=== PATIENT | female | born 1990 | race Caucasian/White ===

== ENCOUNTER 2017-06-04 00:16 | Emergency (ER) | payer OTHER ==
[~2017-06-04] VITALS: Ht 162.5 cm; Wt 72.6 kg
[~2017-06-04 00:16] MED LIST: ALAWAY 10 ML10 ML OU; ANAPROX DS550 MG PO; ATARAX25 MG PO; AUGMENTIN 875 M1 TAB PO; BACTRIM DS 8001 TA1 PO; BENADRYL ALLERG25 M5 PO; BENADRYL25 MG PO; BENTYL10 MG PO; CIPRO500 MG PO; CIPROFLOXACIN500 MG PO; CLARITIN10 MG PO; CLINDAMYCIN HC300 MG PO; CORTISPORIN 1%-10 M1 OT; DARVOCET N 1001 TAB PO; DAYPRO600 M1 PO; DICLOFENAC POTA50 MG PO; DOXYCYCLINE MO100 MG PO; DOXYCYCLINE100 M2 PO; ELMIRON100 MG PO; HYDROCODONE BIT1 T11 PO; KEFLEX500 MG PO; MIRALAX POWDER255 GM PO; MOBIC15 MG PO; MOTRIN800 MG PO; NAPROSYN375 MG PO; NAPROSYN500 MG PO; NEXPLANON68 MG IM; NKHM; PHENERGAN W/DM120 ML PO; PREDNICOT20 MG PO; PREDNISONE10 MG PO; PREDNISONE20 MG PO; PREDNISONE50 MG PO; PYRIDIUM100 MG PO; Peridex 473 ML473 ML PO; ROBAXIN750 MG PO; ROBITUSSIN AC 110 ML PO; TRAMADOL HCL50 MG PO; ULTRAM50 MG PO; URIBEL CAPSULE1 EACH PO; VENTOLIN H0.09 MG/AC INH; VIBRAMYCIN100 MG PO; VICODIN 5/500 505 MG PO; VICODIN 500 MG-1 TAB PO; ZITHROMAX Z PA250 MG PO; ZITHROMAX250 MG PO; ZOFRAN ODT4 MG SL; ZYRTEC10 MG PO
[2017-06-04 01:16] LABS: BILIRUBIN 1+ (NEGATIVE); BLOOD 3+ (NEGATIVE); CLARITY CLOUDY (CLEAR); COLOR YELLOW (YELLOW); GLUCOSE NEGATIVE (NEGATIVE); KETONE TRACE (NEGATIVE); LEUKO ESTERASE 2+ (NEGATIVE); NITRITE NEGATIVE (NEGATIVE); PROTEIN 1+ (NEGATIVE); SPECIFIC GRAVITY >= 1.030 (1.005-1.030)
[2017-06-04 01:21] LABS: RBC TNTC rbc/hpf (0-2)
[2017-06-04 01:22] LABS: BACTERIA 1+; URINE REFLEX COMMENT YES (NO); WBC TNTC wbc/hpf (0-5)
[2017-06-04] MEDS ORDERED: BACTRIM 400-801 EACH PO (01:28)
[2017-06-04] MEDS ORDERED: PYRIDIUM200 M1 PO (01:29)
== END 2017-06-04 01:44 | disposition home or self-care (01) ==
LOC: ED 00:16
PROVIDERS: Emergency Medicine
DX: N39.0 Urinary tract infection, site not specified (principal); R31.9 Hematuria, unspecified; F17.200 Nicotine dependence, unspecified, uncomplicated; Z88.1 Allergy status to other antibiotic agents

== ENCOUNTER 2017-06-09 11:59 | Inpatient (IN) | payer OTHER ==
[~2017-06-09] VITALS: Ht 162.6 cm; Wt 74.4 kg
[~2017-06-09 11:59] MED LIST changes: +BACTRIM 400-801 EACH PO; +PYRIDIUM200 M1 PO
[2017-06-09 12:14] VITALS: BP 117/86
[2017-06-09 12:36] LABS: BILIRUBIN 2+ (NEGATIVE); BLOOD 2+ (NEGATIVE); CLARITY CLOUDY (CLEAR); COLOR YELLOW (YELLOW); GLUCOSE NEGATIVE (NEGATIVE); KETONE 3+ (NEGATIVE); LEUKO ESTERASE 2+ (NEGATIVE); NITRITE NEGATIVE (NEGATIVE); PH 5.5 (5.0-9.0)
[2017-06-09 12:51] LABS: HEMATOCRIT 43.8 % (37.0-47.0); MEAN CELL VOLUME 86.6 fl (81.0-99.0); MEAN CORPUSCULAR HGB 29.6 pg (27.0-31.0); MEAN CORPUSCULAR HGB CONC 34.2 g/dl (33.0-37.0); MEAN PLATELET VOLUME 9.4 fl (9.6-12.3); PLATELET COUNT AUTOMATED 243 10*3/uL (130-400); RED BLOOD COUNT 5.06 10*6/uL (4.10-5.10); RED CELL DISTRI WIDTH 13.5 % (0-14.5); WHITE BLOOD COUNT 24.3 10*3/uL (4.8-10.8)
[2017-06-09 12:53] LABS: WBC 21-30 wbc/hpf (0-5)
[2017-06-09 12:54] LABS: BACTERIA TRACE
[2017-06-09 13:06] LABS: ALBUMIN 3.8 gm/dl (3.1-4.5); ALKALINE PHOSPHATASE 68 U/L (45-117); BUN 8 mg/dl (7-24); CHLORIDE 101 mmol/L (98-107); CREATININE 0.91 mg/dL (0.55-1.02); SGOT/AST 9 IU/L (3-35); SGPT/ALT 13 U/L (12-78); SODIUM 133 mmol/L (136-145); TOTAL PROTEIN 7.5 gm/dL (6.4-8.2)
[2017-06-09 13:08] LABS: PLATELET SUFFICIENCY NORMAL (NORMAL); TOTAL CELLS COUNTED 100 #CELLS
--- NOTE | 2017-06-09 13:35 | NUR ---
PT REMAINS W/O ACUTE DISTRESS NOTED,POSITIONED FOR COMFORT BLANKETS AND PILLOW WERE PREVIOUSLY PROVIDED AND NO COMPLAINTS VOICED @ THIS TIME,SAFETY PRECAUTIONS INTACT AND CALL LIGHT WITHIN REACH.
[2017-06-09 14:47] VITALS: BP 124/74
[2017-06-09 15:30] VITALS: BP 119/61
--- NOTE | 2017-06-09 15:30 | NUR ---
A 26, admitted to , under the services of TIERNEY Contreras DO with a diagnosis of UTI. Chief complaint is PAIN. Patient arrived via stretcher from ER. Monitor applied. Initial assessment completed. Vital signs taken and recorded. TIERNEY CONTRERAS DO notified of admission to the unit. Orders received. See assessment for past medical history, medications and allergies. Patient and/or family oriented to unit. [facility] visitation policy reviewed. Clothing/patient valuable form completed. SAMEREN PAULA
[2017-06-09] MEDS ORDERED: BACTRIM 400-801 EACH PO (15:41)
[2017-06-09] MEDS ORDERED: PYRIDIUM200 M1 PO (15:44)
--- NOTE | 2017-06-09 17:42 | NUR ---
MEDICATED WITH ZOFRAN IV FOR C/O NAUSEA.
--- NOTE | 2017-06-09 18:29 | NUR ---
MEDICATED WITH PAIN PILL FOR PAIN OF 10 OUT OF TEN ON THE PAIN SCALE.
--- NOTE | 2017-06-09 19:36 | NUR ---
PATIENT SITTING UP IN BED C/O N/V. STATES NOT FEELING WELL AT ALL AND THREW UP HER FOOD. ORAL TEMP 99.1. ZOFRAN NOT DUE AT THIS TIME. WILL GIVE TYLENOL PO. BED IN LOWEST POSITION, CALL LIGHT IN REACH
--- NOTE | 2017-06-09 19:49 | NUR ---
MEDICATED WITH PRN TYLENOL FOR TEMP OF 99.1. WILL MONITOR
[2017-06-09 20:00] VITALS: BP 119/61
--- NOTE | 2017-06-09 21:29 | NUR ---
TYLENOL NOT EFFECITVE. ORAL TEMPERATIVE 99.6
--- NOTE | 2017-06-09 21:31 | NUR ---
DR ALARCON AWARE OF PATIENT'S TEMPERATURE. STATES WE WILL WATCH IT FOR NOW AND WE DONT HAVE TO RECHECK IT JUST YET. WILL CONTINUE TO MONITOR
--- NOTE | 2017-06-09 22:39 | NUR ---
PATIENT MEDICATED WITH PRN NORCO FOR C/O RIGHT SIDED PAIN RATED 5/10 ON A 0/10 PAIN SCALE
[2017-06-10] VITALS: BP 117/64
--- NOTE | 2017-06-10 01:00 | NUR ---
PATIENT RESTING IN BED WITH EYES CLOSED. RESPS EASY AND REGULAR. NO S/S OF DISTRESS. BED IN LOWEST POSITOIN, CALL LIGHT IN REACH
--- NOTE | 2017-06-10 01:55 | NUR ---
DR ALARCON AWARE OF TEMPERATURE 101.3. STATES HE WILL BE UP TO SEE THE PATIENT. NO ORDERS AT THIS TIME
--- NOTE | 2017-06-10 02:04 | NUR ---
DR ALARCON AT BEDSIDE
--- NOTE | 2017-06-10 02:39 | NUR ---
PATIENT REQUESTED PRN NORCO FOR PAIN ON THE RIGHT SIDE RATED 3/10 ON A 0/10 PAIN SCALE
--- NOTE | 2017-06-10 03:00 | NUR ---
24 HR chart check completed.
[2017-06-10 04:00] VITALS: BP 101/52
--- NOTE | 2017-06-10 05:56 | NUR ---
MEDICATION EFFECTIVE PER PATIENT
[2017-06-10 06:59] LABS: MEAN CELL VOLUME 89.4 fl (81.0-99.0); MEAN CORPUSCULAR HGB CONC 33.6 g/dl (33.0-37.0); MEAN PLATELET VOLUME 9.9 fl (9.6-12.3); PLATELET COUNT AUTOMATED 197 10*3/uL (130-400); RED BLOOD COUNT 4.06 10*6/uL (4.10-5.10); RED CELL DISTRI WIDTH 13.8 % (0-14.5); WHITE BLOOD COUNT 21.4 10*3/uL (4.8-10.8)
[2017-06-10 07:11] LABS: HEMATOCRIT 36.3 % (37.0-47.0); HEMOGLOBIN 12.2 g/dl (12.0-16.0)
[2017-06-10 07:25] LABS: BUN 5 mg/dl (7-24); CHLORIDE 107 mmol/L (98-107); CHOLESTEROL 108 mg/dL (<200); CREATININE 0.69 mg/dL (0.55-1.02); HDL CHOLESTEROL 34 mg/dl (40-60); LDL CHOLESTEROL 64 mg/dL (9-159); MAGNESIUM 2.3 mg/dL (1.5-2.1); PHOSPHOROUS 2.7 mg/dL (2.5-4.9); SODIUM 141 mmol/L (136-145); TRIGLYCERIDES 49 mg/dl (<150); VLDL CHOLESTEROL 10 mg/dL (6-40)
[2017-06-10 07:26] LABS: PLATELET SUFFICIENCY NORMAL (NORMAL); TOTAL CELLS COUNTED 100 #CELLS
[2017-06-10 07:29] LABS: ACT PARTIAL THROMBO TIME 26.1 SECONDS (20.8-31.5); INTERNATIONAL NORM RATIO 1.2 (2.0-3.5)
--- NOTE | 2017-06-10 07:40 | NUR ---
IV site to left arm is leaking. Site discontinue and dressing applied. IV started right antecubital with #20 angiocath after 1 attempts. The IV site was prepped with Chloraprep. Heparin lock attached. IV solution NS infusing at 100 cc/hr. Sterile dressing applied. Patient tolerated precedure well. Procedure performed according to [facility] policy & procedure. MELVIN SANCHEZ
[2017-06-10 08:00] VITALS: BP 108/45
--- NOTE | 2017-06-10 10:40 | NUR ---
[place] given per prn order for c/o back and abdominal pain and zofran given for nausea.
--- NOTE | 2017-06-10 11:30 | NUR ---
States that medcation given earlier effective.
[2017-06-10 12:00] VITALS: BP 114/60
--- NOTE | 2017-06-10 15:11 | NUR ---
Medicated with norco per prn order for c/o abdominal pain and back pain.
[2017-06-10 16:00] VITALS: BP 112/61
--- NOTE | 2017-06-10 16:38 | NUR ---
Medicated with tylenol per prn order complaints of headache. States she is coughing as well some white to yellow phlegm. Pt lungs are clear. States she is wondering if it is her sinuses. Also requesting nicoderm patch. Spoke with Dr. Obregon at this time regarding pt complaints/request.
--- NOTE | 2017-06-10 16:41 | NUR ---
Medicated with zofran iv per prn order for complaints of nausea.
--- NOTE | 2017-06-10 18:00 | NUR ---
States that medication was effective.
--- NOTE | 2017-06-10 19:39 | NUR ---
PATIENT SITTING IN BED WITH VISITOR AT BEDSIDE. IV INFUSING WITHOUT DIFFICULTY. PATIENT STATES SHE WOULD LIKE ANOTHER MOTRIN BEFORE BED TONIGHT BECAUSE IT WORKED WELL LAST NIGHT. WILL CALL THE DR DRAPERY AND UPHOLSTERY ESTIMATOR. NO OTHER NEEDS MADE AT THIS TIME. BED IN LOWEST POSITION, CALL LIGHT IN REACH
[2017-06-10 20:00] VITALS: BP 114/59
--- NOTE | 2017-06-10 21:19 | NUR ---
MEDICATED WITH PRN NORCO FOR C/O PAIN IN THE RIGHT FLANK RATED 10/10 ON A 0/10 PAIN SCALE. WILL MONITOR.
--- NOTE | 2017-06-10 22:14 | NUR ---
PATIENT CRYING AND SHAKING COMPLAINING OF PAIN IN THE RIGHT FLANK. MEDICATED WITH PRN MORPHINE. PAIN RATED A 10/10 ON A 0/10 PAIN SCALE. WILL MONITOR
--- NOTE | 2017-06-10 22:35 | NUR ---
NORCO NOT EFFECTIVE PER PATIENT
--- NOTE | 2017-06-10 23:04 | NUR ---
24 HR chart check completed.
--- NOTE | 2017-06-10 23:13 | NUR ---
MORPHINE NOT EFFECTIVE PER PATIENT. MEDICATED WITH PRN ZOFRAN FOR DRY HEAVES
--- NOTE | 2017-06-10 23:17 | NUR ---
DR CLARK AWARE OF PATIENT COMPLAINING OF VAGINAL PAIN, DRY HEAVES, AND UNRELIEVED RIGHT FLANK PAIN. STATES HE WILL TALK TO DR OROZCO AND SEE WHAT THEY CAN DO
[2017-06-11] VITALS: BP 122/68
--- NOTE | 2017-06-11 01:06 | NUR ---
MEDICATED WITH PRN DILAUDID AND PHENERGAN FOR C/O PAIN RATED 10/10 AND DRY HEAVES. AT BEDSIDE. ENCOURAGED NOT TO GET OUT OF BED ON HER OWN. BED IN LOWEST POSITION, CALL LIGHT IN REACH
--- NOTE | 2017-06-11 02:52 | NUR ---
PATIENT RESTING IN BED WITH EYES CLOSED. RESPS EASY AND REGULAR. IV FLUIDS INFUSING WITHOUT DIFFICULTY. MEDICATIONS SEEM TO BE EFFECTIVE
--- NOTE | 2017-06-11 04:00 | NUR ---
LEADERSHIP DEVELOPMENT MANAGER CALLED FOR HEART RATE OF 49. PATIENT RESTING WELL AND DENIES ANY SYMPTOMS AT THIS TIME. WILL CONTINUE TO MONITOR
--- NOTE | 2017-06-11 04:08 | NUR ---
DR CLARK AWARE OF PATIENT'S HR 48. NO ORDERS
[2017-06-11 06:09] LABS: BASO % 0.3 % (0.0-1.0); EOS # 0.1 10*3/uL (0.0-0.4); HEMATOCRIT 33.8 % (37.0-47.0); HEMOGLOBIN 10.9 g/dl (12.0-16.0); LYMPH # 2.6 10*3/uL (1.3-4.4); LYMPH % 18.4 % (27.0-41.0); MEAN CELL VOLUME 88.9 fl (81.0-99.0); MEAN CORPUSCULAR HGB 28.7 pg (27.0-31.0); MEAN CORPUSCULAR HGB CONC 32.2 g/dl (33.0-37.0); MEAN PLATELET VOLUME 9.7 fl (9.6-12.3); MONO # 1.2 10*3/uL (0.1-1.0); MONO % 8.6 % (3.0-9.0); NEUT # 10.2 10*3/uL (2.3-7.9); NEUT % 71.2 % (47.0-73.0); PLATELET COUNT AUTOMATED 162 10*3/uL (130-400); RED CELL DISTRI WIDTH 13.8 % (0-14.5); WHITE BLOOD COUNT 14.3 10*3/uL (4.8-10.8)
[2017-06-11 06:41] LABS: BUN 5 mg/dl (7-24); CHLORIDE 110 mmol/L (98-107); POTASSIUM 3.9 mmol/L (3.5-5.1); SODIUM 141 mmol/L (136-145)
[2017-06-11 06:47] LABS: CREATININE 0.65 mg/dL (0.55-1.02); FREE T4 1.09 ng/dl (0.76-1.46)
[2017-06-11 08:00] VITALS: BP 104/51
--- NOTE | 2017-06-11 08:02 | NUR ---
Medicated with dilaudid iv per prn order for complaints of abdominal pain.
--- NOTE | 2017-06-11 08:30 | NUR ---
States that dilaudid was effective.
--- NOTE | 2017-06-11 09:40 | NUR ---
Medicated with zofran iv per prn order for complaints of nausea.
--- NOTE | 2017-06-11 10:30 | NUR ---
States that zofran effective.
--- NOTE | 2017-06-11 11:50 | NUR ---
Pt mother her requesting to speak with physiccosme. I notified Dr. Bejarano of this who states he will be here to talk with her in a few minutes.
[2017-06-11 12:00] VITALS: BP 114/59
--- NOTE | 2017-06-11 12:01 | NUR ---
Dr. Bejarano was in and spoke with pt mom. Dr. Bejarano states pt is requesting something for abdominal pain and to please give her some toradol. Medicated at this time.
--- NOTE | 2017-06-11 14:09 | NUR ---
States she started her period and is having alot of cramping. Medicated with tylenol per prn order.
[2017-06-11 16:00] VITALS: BP 111/56
[2017-06-11 20:00] VITALS: BP 125/73
[2017-06-12] VITALS: BP 135/75
--- NOTE | 2017-06-12 04:59 | NUR ---
24 HR chart check completed.
[2017-06-12 06:21] LABS: BASO % 0.3 % (0.0-1.0); EOS # 0.3 10*3/uL (0.0-0.4); EOS % 2.7 % (1.0-4.0); HEMATOCRIT 34.3 % (37.0-47.0); HEMOGLOBIN 11.3 g/dl (12.0-16.0); LYMPH # 2.4 10*3/uL (1.3-4.4); LYMPH % 23.6 % (27.0-41.0); MEAN CELL VOLUME 87.5 fl (81.0-99.0); MEAN CORPUSCULAR HGB 28.8 pg (27.0-31.0); MEAN CORPUSCULAR HGB CONC 32.9 g/dl (33.0-37.0); MEAN PLATELET VOLUME 10.1 fl (9.6-12.3); MONO # 0.8 10*3/uL (0.1-1.0); NEUT # 6.7 10*3/uL (2.3-7.9); NEUT % 64.8 % (47.0-73.0); PLATELET COUNT AUTOMATED 194 10*3/uL (130-400); RED BLOOD COUNT 3.92 10*6/uL (4.10-5.10); WHITE BLOOD COUNT 10.3 10*3/uL (4.8-10.8)
[2017-06-12 06:48] LABS: ALBUMIN 2.6 gm/dl (3.1-4.5); ALKALINE PHOSPHATASE 79 U/L (45-117); BUN 8 mg/dl (7-24); CHLORIDE 105 mmol/L (98-107); CREATININE 0.71 mg/dL (0.55-1.02); POTASSIUM 3.6 mmol/L (3.5-5.1); SGOT/AST 35 IU/L (3-35); SGPT/ALT 40 U/L (12-78); SODIUM 140 mmol/L (136-145); TOTAL PROTEIN 6.1 gm/dL (6.4-8.2)
[2017-06-12 08:00] VITALS: BP 123/66
[2017-06-12] MEDS ORDERED: CIPRO500 MG PO (11:27)
--- NOTE | 2017-06-12 12:40 | NUR ---
Discharge instructions reviewed with patient/family. Patient receptive and verbalizes understanding. Follow-up care arranged. Written instructions given to patient/family. ALEX MARTINEZ
[2017-06-12] MEDS ORDERED: VITAMIN D-32000 UNIT PO (13:30)
[2017-06-12] MEDS ORDERED: VITAMIN B12-FO1 EACH PO (13:30)
== END 2017-06-12 12:40 | disposition home or self-care (01) | DRG 871 ==
LOC: ED 11:59 → EDHOLD 13:57 → 4E 13:57
PROVIDERS: Emergency Medicine; Family Medicine; Internal Medicine Hospice and Palliative Medicine; ADMIT Internal Medicine
DX: A41.51 Sepsis due to Escherichia coli [E. coli] (principal); E43 Unspecified severe protein-calorie malnutrition; E87.1 Hypo-osmolality and hyponatremia; N12 Tubulo-interstitial nephritis, not specified as acute or chronic; N30.10 Interstitial cystitis (chronic) without hematuria; F17.210 Nicotine dependence, cigarettes, uncomplicated; Z16.29 Resistance to other single specified antibiotic; D64.9 Anemia, unspecified; E55.9 Vitamin D deficiency, unspecified; E53.8 Deficiency of other specified B group vitamins; E05.90 Thyrotoxicosis, unspecified without thyrotoxic crisis or storm; N20.0 Calculus of kidney; Z79.899 Other long term (current) drug therapy; Z98.51 Tubal ligation status; Z71.6 Tobacco abuse counseling; Z88.1 Allergy status to other antibiotic agents; Z83.3 Family history of diabetes mellitus

== ENCOUNTER 2017-08-04 19:42 | Emergency (ER) | payer OTHER ==
[~2017-08-04] VITALS: Ht 162.5 cm; Wt 72.6 kg
[~2017-08-04 19:42] MED LIST changes: +VITAMIN B12-FO1 EACH PO; +VITAMIN D-32000 UNIT PO
[2017-08-04] MEDS ORDERED: Meclizine25 MG PO (20:41)
== END 2017-08-04 23:01 | disposition home or self-care (01) ==
LOC: ED 19:42
DX: H60.91 Unspecified otitis externa, right ear (principal); R11.0 Nausea; R42 Dizziness and giddiness; F17.200 Nicotine dependence, unspecified, uncomplicated; Z88.1 Allergy status to other antibiotic agents

== ENCOUNTER 2018-03-18 17:56 | Emergency (ER) | payer OTHER ==
[~2018-03-18] VITALS: Wt 74.4 kg
[~2018-03-18 17:56] MED LIST changes: +IBU800 MG PO; +Meclizine25 MG PO
[2018-03-18] MEDS ORDERED: PREDNISONE10 MG PO (18:00)
== END 2018-03-18 18:22 | disposition home or self-care (01) ==
LOC: ED 17:56
DX: L30.8 Other specified dermatitis (principal); F17.200 Nicotine dependence, unspecified, uncomplicated; Z98.51 Tubal ligation status; Z98.890 Other specified postprocedural states; Z88.1 Allergy status to other antibiotic agents

== ENCOUNTER 2018-04-19 11:23 | Emergency (ER) | payer OTHER ==
[~2018-04-19] VITALS: Ht 162.5 cm; Wt 74.4 kg
[2018-04-19 12:24] LABS: BILIRUBIN 2+ (NEGATIVE); BLOOD 3+ (NEGATIVE); CLARITY CLOUDY (CLEAR); COLOR YELLOW (YELLOW); GLUCOSE NEGATIVE (NEGATIVE); KETONE 3+ (NEGATIVE); LEUKO ESTERASE 3+ (NEGATIVE); NITRITE POSITIVE (NEGATIVE); SPECIFIC GRAVITY 1.025 (1.005-1.030)
[2018-04-19 12:34] LABS: BACTERIA 4+; RBC TNTC rbc/hpf (0-2); WBC TNTC wbc/hpf (0-5)
[2018-04-19] MEDS ORDERED: PYRIDIUM200 M1 PO (12:36)
[2018-04-19] MEDS ORDERED: SEPTDS PO ×2 (12:36)
[2018-04-19] MEDS ORDERED: Motrin,Rufen800 MG PO (12:38)
[2018-06-05] MEDS ORDERED: OMNICEF300 MG PO (22:53)
== END 2018-04-19 12:43 | disposition home or self-care (01) ==
LOC: ED 11:23
PROVIDERS: Nurse Practitioner Family
DX: N39.0 Urinary tract infection, site not specified (principal); F17.200 Nicotine dependence, unspecified, uncomplicated; Z88.1 Allergy status to other antibiotic agents

== ENCOUNTER 2018-04-21 14:52 | Emergency (ER) | payer OTHER ==
[~2018-04-21] VITALS: Ht 162.5 cm; Wt 74.8 kg
[~2018-04-21 14:52] MED LIST changes: +Motrin,Rufen800 MG PO; +SEPTDS PO
[2018-06-05] MEDS ORDERED: OMNICEF300 MG PO (22:53)
== END 2018-04-21 16:57 | disposition home or self-care (01) ==
LOC: ED 14:52
DX: S00.81XA Abrasion of other part of head, initial encounter (principal); S80.211A Abrasion, right knee, initial encounter; S80.811A Abrasion, right lower leg, initial encounter; S60.512A Abrasion of left hand, initial encounter; S60.511A Abrasion of right hand, initial encounter; F17.200 Nicotine dependence, unspecified, uncomplicated; Z98.51 Tubal ligation status; Z98.890 Other specified postprocedural states; Z79.899 Other long term (current) drug therapy; Z88.1 Allergy status to other antibiotic agents; V19.9XXA Pedal cyclist (driver) (passenger) injured in unspecified traffic accident, initial encounter; Y93.55 Activity, bike riding; Y92.413 State road as the place of occurrence of the external cause; Y99.9 Unspecified external cause status

== ENCOUNTER 2018-05-28 19:41 | Emergency (ER) | payer OTHER ==
[~2018-05-28] VITALS: Ht 165.1 cm; Wt 74.4 kg
[2018-06-05] MEDS ORDERED: OMNICEF300 MG PO (22:53)
== END 2018-05-28 21:42 | disposition home or self-care (01) ==
LOC: ED 19:41
DX: T74.11XA Adult physical abuse, confirmed, initial encounter (principal); S16.1XXA Strain of muscle, fascia and tendon at neck level, initial encounter; S09.90XA Unspecified injury of head, initial encounter; R55 Syncope and collapse; E05.80 Other thyrotoxicosis without thyrotoxic crisis or storm; F17.200 Nicotine dependence, unspecified, uncomplicated; Z88.1 Allergy status to other antibiotic agents; Z79.899 Other long term (current) drug therapy; Z98.51 Tubal ligation status; Y93.89 Activity, other specified; Y04.2XXA Assault by strike against or bumped into by another person, initial encounter; Y92.89 Other specified places as the place of occurrence of the external cause; Y99.8 Other external cause status

== ENCOUNTER 2018-10-22 14:46 | Emergency (ER) | payer OTHER ==
[~2018-10-22] VITALS: Ht 162.5 cm; Wt 75.7 kg
[~2018-10-22 14:46] MED LIST changes: +OMNICEF300 MG PO
[2018-10-22] MEDS ORDERED: CLARITIN10 MG PO (15:04)
[2018-10-22] MEDS ORDERED: PREDNISONE10 MG PO (15:04)
[2018-10-22] MEDS ORDERED: ZOFRAN4 MG PO (15:04)
[2018-10-22] MEDS ORDERED: FLONASE ALLERG9.9 ML NAS (15:04)
[2018-10-22 15:20] LABS: BASO # 0.1 10*3/uL (0.0-0.1); BASO % 0.3 % (0.0-1.0); BILIRUBIN NEGATIVE (NEGATIVE); BLOOD NEGATIVE (NEGATIVE); CLARITY CLEAR (CLEAR); COLOR YELLOW (YELLOW); EOS # 0.3 10*3/uL (0.0-0.4); EOS % 1.5 % (1.0-4.0); GLUCOSE NEGATIVE (NEGATIVE); HEMATOCRIT 47.4 % (37.0-47.0); HEMOGLOBIN 16.1 g/dl (12.0-16.0); KETONE NEGATIVE (NEGATIVE); LEUKO ESTERASE NEGATIVE (NEGATIVE); LYMPH # 1.8 10*3/uL (1.3-4.4); LYMPH % 9.3 % (27.0-41.0); MEAN CELL VOLUME 90.6 fl (81.0-99.0); MEAN CORPUSCULAR HGB 30.8 pg (27.0-31.0); MEAN PLATELET VOLUME 9.3 fl (9.6-12.3); MONO # 0.6 10*3/uL (0.1-1.0); MONO % 3.2 % (3.0-9.0); NEUT % 85.3 % (47.0-73.0); NITRITE NEGATIVE (NEGATIVE); PLATELET COUNT AUTOMATED 257 10*3/uL (130-400); RED BLOOD COUNT 5.23 10*6/uL (4.10-5.10); RED CELL DISTRI WIDTH 13.1 % (0-14.5); UROBILINOGEN 0.2 E.U./dl (0.2-1.0); WHITE BLOOD COUNT 18.7 10*3/uL (4.8-10.8)
[2018-10-22 15:32] LABS: BACTERIA TRACE; RBC 0-2 rbc/hpf (0-2)
[2018-10-22 16:31] LABS: ALBUMIN 3.9 gm/dl (3.1-4.5); ALKALINE PHOSPHATASE 72 U/L (45-117); BUN 12 mg/dl (7-24); CHLORIDE 110 mmol/L (98-107); CREATININE 0.71 mg/dL (0.55-1.02); LIPASE 72 U/L (73-393); SGOT/AST 13 IU/L (3-35); SGPT/ALT 20 U/L (12-78); SODIUM 141 mmol/L (136-145); TOTAL PROTEIN 7.4 gm/dL (6.4-8.2)
[2018-10-22] MEDS ORDERED: CIPRO500 MG PO (17:04)
[2018-10-22] MEDS ORDERED: FLAGYL500 MG PO (17:04)
== END 2018-10-22 17:20 | disposition home or self-care (01) ==
LOC: ED 14:46
PROVIDERS: Nurse Practitioner Family
DX: K52.9 Noninfective gastroenteritis and colitis, unspecified (principal); R05 Cough; R09.81 Nasal congestion; F17.200 Nicotine dependence, unspecified, uncomplicated; Z88.1 Allergy status to other antibiotic agents; Z79.2 Long term (current) use of antibiotics

== ENCOUNTER 2019-01-20 05:05 | Emergency (ER) | payer OTHER ==
[~2019-01-20] VITALS: Ht 162.5 cm; Wt 74.4 kg
[~2019-01-20 05:05] MED LIST changes: +FLAGYL500 MG PO; +FLONASE ALLERG9.9 ML NAS; +ZOFRAN4 MG PO
[2019-01-20] MEDS ORDERED: FLONASE ALLERG9.9 ML NAS (05:30)
[2019-01-20] MEDS ORDERED: SUDOGEST60 MG PO (05:30)
[2019-01-20] MEDS ORDERED: CEFDINIR300 MG PO (05:30)
[2019-01-20] MEDS ORDERED: Motrin,Rufen800 MG PO (05:30)
[2019-02-22] MEDS ORDERED: PROTONIX40 MG PO (02:05)
[2019-02-22] MEDS ORDERED: ZOFRAN4 MG PO (02:05)
[2019-05-04] MEDS ORDERED: ZOFRAN4 MG PO (15:11)
[2019-05-04] MEDS ORDERED: PEPCID20 MG PO (15:11)
[2019-05-04] MEDS ORDERED: ALLEGRA-D 24 H1 EACH PO (15:11)
[2019-05-04] MEDS ORDERED: FLONASE ALLERG9.9 ML NAS (15:11)
== END 2019-01-20 06:16 | disposition home or self-care (01) ==
LOC: ED 05:05
DX: H66.92 Otitis media, unspecified, left ear (principal); H60.92 Unspecified otitis externa, left ear; H92.01 Otalgia, right ear; E05.90 Thyrotoxicosis, unspecified without thyrotoxic crisis or storm; F17.200 Nicotine dependence, unspecified, uncomplicated; Z88.1 Allergy status to other antibiotic agents; Z79.899 Other long term (current) drug therapy; Z79.2 Long term (current) use of antibiotics

== ENCOUNTER 2019-02-08 16:49 | Emergency (ER) | payer OTHER ==
[~2019-02-08] VITALS: Ht 162.5 cm; Wt 81.6 kg
[~2019-02-08 16:49] MED LIST changes: +CEFDINIR300 MG PO; +SUDOGEST60 MG PO
[2019-02-08 17:38] LABS: BASO # 0.1 10*3/uL (0.0-0.1); BASO % 0.5 % (0.0-1.0); EOS # 0.1 10*3/uL (0.0-0.4); EOS % 0.9 % (1.0-4.0); HEMATOCRIT 41.8 % (37.0-47.0); HEMOGLOBIN 14.2 g/dl (12.0-16.0); LYMPH # 2.2 10*3/uL (1.3-4.4); LYMPH % 18.8 % (27.0-41.0); MEAN CELL VOLUME 90.7 fl (81.0-99.0); MEAN CORPUSCULAR HGB 30.8 pg (27.0-31.0); MEAN PLATELET VOLUME 9.3 fl (9.6-12.3); MONO # 0.7 10*3/uL (0.1-1.0); MONO % 6.1 % (3.0-9.0); NEUT # 8.7 10*3/uL (2.3-7.9); NEUT % 73.4 % (47.0-73.0); PLATELET COUNT AUTOMATED 287 10*3/uL (130-400); RED BLOOD COUNT 4.61 10*6/uL (4.10-5.10); WHITE BLOOD COUNT 11.9 10*3/uL (4.8-10.8)
[2019-02-08 17:52] LABS: ALBUMIN 3.9 gm/dl (3.1-4.5); ALKALINE PHOSPHATASE 65 U/L (45-117); BUN 9 mg/dl (7-24); CHLORIDE 99 mmol/L (98-107); CREATININE 0.74 mg/dL (0.55-1.02); LIPASE 44 U/L (73-393); POTASSIUM 3.1 mmol/L (3.5-5.1); SGOT/AST 15 IU/L (3-35); SODIUM 136 mmol/L (136-145)
[2019-02-08 17:55] LABS: SGPT/ALT 15 U/L (12-78)
[2019-02-08] MEDS ORDERED: K-TAB20 MEQ PO (19:56)
[2019-02-08] MEDS ORDERED: ZOFRAN4 MG PO (19:56)
[2019-02-22] MEDS ORDERED: ZOFRAN4 MG PO (02:05)
[2019-02-22] MEDS ORDERED: PROTONIX40 MG PO (02:05)
[2019-05-04] MEDS ORDERED: ALLEGRA-D 24 H1 EACH PO (15:11)
[2019-05-04] MEDS ORDERED: FLONASE ALLERG9.9 ML NAS (15:11)
[2019-05-04] MEDS ORDERED: ZOFRAN4 MG PO (15:11)
[2019-05-04] MEDS ORDERED: PEPCID20 MG PO (15:11)
== END 2019-02-08 20:12 | disposition home or self-care (01) ==
LOC: ED 16:49
PROVIDERS: Physician Assistant
DX: K52.9 Noninfective gastroenteritis and colitis, unspecified (principal); F17.200 Nicotine dependence, unspecified, uncomplicated; Z88.1 Allergy status to other antibiotic agents

== ENCOUNTER 2019-02-15 23:33 | Emergency (ER) | payer OTHER ==
[~2019-02-15] VITALS: Ht 162.5 cm; Wt 81.6 kg
[~2019-02-15 23:33] MED LIST changes: +K-TAB20 MEQ PO
[2019-02-16 00:14] LABS: BASO # 0.1 10*3/uL (0.0-0.1); BASO % 0.5 % (0.0-1.0); EOS # 0.2 10*3/uL (0.0-0.4); HEMATOCRIT 44.3 % (37.0-47.0); HEMOGLOBIN 14.8 g/dl (12.0-16.0); LYMPH # 2.8 10*3/uL (1.3-4.4); LYMPH % 23.5 % (27.0-41.0); MEAN CORPUSCULAR HGB 30.1 pg (27.0-31.0); MEAN CORPUSCULAR HGB CONC 33.4 g/dl (33.0-37.0); MEAN PLATELET VOLUME 9.4 fl (9.6-12.3); MONO # 0.6 10*3/uL (0.1-1.0); MONO % 4.9 % (3.0-9.0); NEUT # 8.1 10*3/uL (2.3-7.9); NEUT % 68.9 % (47.0-73.0); PLATELET COUNT AUTOMATED 290 10*3/uL (130-400); RED BLOOD COUNT 4.92 10*6/uL (4.10-5.10); WHITE BLOOD COUNT 11.7 10*3/uL (4.8-10.8)
[2019-02-16 00:30] LABS: ALBUMIN 3.8 gm/dl (3.1-4.5); ALKALINE PHOSPHATASE 63 U/L (45-117); BETA-HCG, QUANT < 1.0 mIU/mL (1-3); BUN 7 mg/dl (7-24); CHLORIDE 111 mmol/L (98-107); LIPASE 72 U/L (73-393); POTASSIUM 3.8 mmol/L (3.5-5.1); SGOT/AST 13 IU/L (3-35); SGPT/ALT 17 U/L (12-78); SODIUM 140 mmol/L (136-145); TOTAL PROTEIN 7.1 gm/dL (6.4-8.2)
[2019-02-16 01:27] LABS: BILIRUBIN NEGATIVE (NEGATIVE); BLOOD NEGATIVE (NEGATIVE); CLARITY CLEAR (CLEAR); COLOR YELLOW (YELLOW); GLUCOSE NEGATIVE (NEGATIVE); KETONE NEGATIVE (NEGATIVE); LEUKO ESTERASE NEGATIVE (NEGATIVE); NITRITE NEGATIVE (NEGATIVE); PH 6.5 (5.0-9.0); UROBILINOGEN 0.2 E.U./dl (0.2-1.0)
[2019-02-16 01:39] LABS: BACTERIA 1+; RBC 0-2 rbc/hpf (0-2)
[2019-02-16 03:39] LABS: URINE AMPHETAMINES < 1000 (1000ng/ml); URINE BARBITURATES < 200 (200ng/ml); URINE BENZODIAZEPINES < 200 (200ng/ml); URINE CANNABINOIDS (THC) > 50 (50ng/ml); URINE COCAINE < 300 (300ng/ml); URINE METHADONE < 300 (300ng/ml); URINE OPIATES < 300 (300ng/ml)
[2019-02-16 03:40] LABS: URINE PHENCYCLIDINE < 25 (25ng/ml)
[2019-02-16] MEDS ORDERED: ATARAX,VISTARIL50 MG PO (04:33)
[2019-02-16] MEDS ORDERED: DICYCLOMINE HCL10 MG PO (04:58)
[2019-02-22] MEDS ORDERED: PROTONIX40 MG PO (02:05)
[2019-02-22] MEDS ORDERED: ZOFRAN4 MG PO (02:05)
[2019-05-04] MEDS ORDERED: PEPCID20 MG PO (15:11)
[2019-05-04] MEDS ORDERED: FLONASE ALLERG9.9 ML NAS (15:11)
[2019-05-04] MEDS ORDERED: ALLEGRA-D 24 H1 EACH PO (15:11)
[2019-05-04] MEDS ORDERED: ZOFRAN4 MG PO (15:11)
== END 2019-02-16 05:13 | disposition home or self-care (01) ==
LOC: ED 23:33
PROVIDERS: Emergency Medicine Emergency Medical Services
DX: K52.9 Noninfective gastroenteritis and colitis, unspecified (principal); F41.9 Anxiety disorder, unspecified; E05.90 Thyrotoxicosis, unspecified without thyrotoxic crisis or storm; F17.200 Nicotine dependence, unspecified, uncomplicated; Z88.1 Allergy status to other antibiotic agents; Z79.899 Other long term (current) drug therapy

== ENCOUNTER 2019-05-19 17:47 | Emergency (ER) | payer OTHER ==
[~2019-05-19] VITALS: Ht 162.5 cm; Wt 74.8 kg
--- NOTE | ~2019-05-19 | EKG ---
[place], [place] ELECTROCARDIOGRAM REPORT NAME: JOHN WARREN UNIT #: [id number] ROOM: DOCTOR: EPIPHANY DRAFT REPORT BIRTHDATE: [birth year] [facility] Test Date: 2019-05-19 Test Time: 17:56:02 Pat Name: JOHN WARREN Department: ED Room: 2 Gender: F Want Ad Receiver: : 1990 Requested By: TJ TRIPATHI Order Number: [id number] Reading MD: Abundio Mir MD Measurements Intervals [place] Rate: 127 P: 72 NV: 71 QRS: 74 QRSD: 97 T: -54 QT: 297 QTc: 432 Interpretive Statements Sinus tachycardia Low voltage, precordial leads Borderline Q waves in inferior leads Borderline repolarization abnormality Baseline wander in lead(s) I Electronically Signed On 05-22-2019 8:40:07 PDT by Abundio Mir MD CM:EKGRPT:ELECTROCARDIOGRAM REPORT [id number] TJ BELTRAN DRAFT REPORT TJ TRIPATHI DO
[~2019-05-19 17:47] MED LIST changes: +ALLEGRA-D 24 H1 EACH PO; +ATARAX,VISTARIL50 MG PO; +DICYCLOMINE HCL10 MG PO; +PEPCID20 MG PO; +PROTONIX40 MG PO
[2019-05-19 18:27] LABS: BASO # 0.1 10*3/uL (0.0-0.1); BASO % 0.3 % (0.0-1.0); EOS # 0.3 10*3/uL (0.0-0.4); EOS % 1.4 % (1.0-4.0); HEMATOCRIT 41.7 % (37.0-47.0); HEMOGLOBIN 13.6 g/dl (12.0-16.0); LYMPH % 9.8 % (27.0-41.0); MEAN CELL VOLUME 90.7 fl (81.0-99.0); MEAN CORPUSCULAR HGB 29.6 pg (27.0-31.0); MEAN CORPUSCULAR HGB CONC 32.6 g/dl (33.0-37.0); MEAN PLATELET VOLUME 9.5 fl (9.6-12.3); MONO # 0.9 10*3/uL (0.1-1.0); MONO % 4.6 % (3.0-9.0); NEUT # 16.6 10*3/uL (2.3-7.9); NEUT % 83.3 % (47.0-73.0); PLATELET COUNT AUTOMATED 281 10*3/uL (130-400); RED CELL DISTRI WIDTH 13.7 % (0-14.5)
[2019-05-19 18:37] LABS: ACT PARTIAL THROMBO TIME 23.4 SECONDS (20.0-32.1)
[2019-05-19 18:43] LABS: ALBUMIN 3.8 gm/dl (3.1-4.5); ALKALINE PHOSPHATASE 72 U/L (45-117); BUN 9 mg/dl (7-24); CHLORIDE 110 mmol/L (98-107); CREATININE 0.88 mg/dL (0.55-1.02); LIPASE 38 U/L (73-393); POTASSIUM 3.3 mmol/L (3.5-5.1); SGOT/AST 10 IU/L (3-35); SGPT/ALT 21 U/L (12-78); SODIUM 139 mmol/L (136-145); TOTAL PROTEIN 7.6 gm/dL (6.4-8.2)
[2019-05-19 18:53] LABS: BETA-HCG, QUANT < 1.0 mIU/mL (1-3); TROPONIN I < 0.015 ng/ml (<0.045)
[2019-05-19 21:43] LABS: BILIRUBIN NEGATIVE (NEGATIVE); BLOOD 1+ (NEGATIVE); CLARITY SL CLOUDY (CLEAR); COLOR YELLOW (YELLOW); GLUCOSE NEGATIVE (NEGATIVE); KETONE 1+ (NEGATIVE); LEUKO ESTERASE 1+ (NEGATIVE); NITRITE POSITIVE (NEGATIVE); SPECIFIC GRAVITY >= 1.030 (1.005-1.030); UROBILINOGEN 0.2 E.U./dl (0.2-1.0)
[2019-05-19 21:48] LABS: URINE AMPHETAMINES < 1000 (1000ng/ml); URINE BARBITURATES < 200 (200ng/ml); URINE BENZODIAZEPINES < 200 (200ng/ml); URINE CANNABINOIDS (THC) > 50 (50ng/ml); URINE COCAINE < 300 (300ng/ml); URINE METHADONE < 300 (300ng/ml); URINE OPIATES < 300 (300ng/ml)
[2019-05-19 21:49] LABS: URINE PHENCYCLIDINE < 25 (25ng/ml)
[2019-05-19] MEDS ORDERED: SEPTDS PO (21:56)
[2019-05-19 22:09] LABS: BACTERIA 4+; MUCOUS 2+; WBC 31-40 wbc/hpf (0-5)
== END 2019-05-19 22:25 | disposition left against medical advice (07) ==
LOC: ED 17:47
PROVIDERS: Emergency Medicine; Student in an Organized Health Care Education/Training Program
DX: T40.2X1A Poisoning by other opioids, accidental (unintentional), initial encounter (principal); R40.20 Unspecified coma; N39.0 Urinary tract infection, site not specified; R11.0 Nausea; R61 Generalized hyperhidrosis; N20.0 Calculus of kidney; E05.90 Thyrotoxicosis, unspecified without thyrotoxic crisis or storm; F17.200 Nicotine dependence, unspecified, uncomplicated; Z88.1 Allergy status to other antibiotic agents; Z88.5 Allergy status to narcotic agent; Z79.899 Other long term (current) drug therapy; Y92.89 Other specified places as the place of occurrence of the external cause

== ENCOUNTER → 2019-07-06 | Outpatient (CLI) | payer OTHER ==
[2019-07-06 21:38] LABS: BILIRUBIN NEGATIVE (NEGATIVE); BLOOD NEGATIVE (NEGATIVE); CLARITY CLEAR (CLEAR); COLOR YELLOW (YELLOW); GLUCOSE NEGATIVE (NEGATIVE); KETONE NEGATIVE (NEGATIVE); LEUKO ESTERASE NEGATIVE (NEGATIVE); NITRITE NEGATIVE (NEGATIVE); UROBILINOGEN 0.2 E.U./dl (0.2-1.0)
== END | disposition home or self-care (01) ==
LOC: LAB 20:45
DX: R31.0 Gross hematuria (principal)

== ENCOUNTER 2019-12-06 20:38 | Emergency (ER) | payer OTHER ==
[~2019-12-06] VITALS: Ht 167.6 cm; Wt 74.8 kg
[2019-12-06 21:34] LABS: BASO # 0.1 10*3/uL (0.0-0.1); BASO % 0.5 % (0.0-1.0); EOS # 0.1 10*3/uL (0.0-0.4); EOS % 0.6 % (1.0-4.0); HEMATOCRIT 44.5 % (37.0-47.0); HEMOGLOBIN 14.8 g/dl (12.0-16.0); LYMPH # 3.5 10*3/uL (1.3-4.4); LYMPH % 20.1 % (27.0-41.0); MEAN CELL VOLUME 87.9 fl (81.0-99.0); MEAN CORPUSCULAR HGB 29.2 pg (27.0-31.0); MEAN CORPUSCULAR HGB CONC 33.3 g/dl (33.0-37.0); MEAN PLATELET VOLUME 9.5 fl (9.6-12.3); MONO # 1.2 10*3/uL (0.1-1.0); MONO % 6.6 % (3.0-9.0); NEUT # 12.6 10*3/uL (2.3-7.9); NEUT % 71.8 % (47.0-73.0); PLATELET COUNT AUTOMATED 320 10*3/uL (130-400); RED BLOOD COUNT 5.06 10*6/uL (4.10-5.10); RED CELL DISTRI WIDTH 13.3 % (0-14.5); WHITE BLOOD COUNT 17.5 10*3/uL (4.8-10.8)
[2019-12-06 21:42] LABS: ALBUMIN 3.9 gm/dl (3.1-4.5); ALKALINE PHOSPHATASE 66 U/L (45-117); BUN 14 mg/dl (7-24); CHLORIDE 108 mmol/L (98-107); CREATININE 0.99 mg/dL (0.55-1.02); LIPASE 64 U/L (73-393); POTASSIUM 3.4 mmol/L (3.5-5.1); SGOT/AST 9 IU/L (3-35); SGPT/ALT 15 U/L (12-78); SODIUM 140 mmol/L (136-145); TOTAL PROTEIN 7.3 gm/dL (6.4-8.2)
[2019-12-06 22:07] LABS: URINE AMPHETAMINES < 1000 (1000ng/ml); URINE BARBITURATES < 200 (200ng/ml); URINE BENZODIAZEPINES < 200 (200ng/ml); URINE CANNABINOIDS (THC) > 50 (50ng/ml); URINE COCAINE < 300 (300ng/ml); URINE METHADONE < 300 (300ng/ml); URINE OPIATES > 300 (300ng/ml)
[2019-12-06 22:08] LABS: URINE PHENCYCLIDINE < 25 (25ng/ml)
[2019-12-06 22:15] LABS: BILIRUBIN 1+ (NEGATIVE); BLOOD 1+ (NEGATIVE); CLARITY SL CLOUDY (CLEAR); COLOR YELLOW (YELLOW); GLUCOSE NEGATIVE (NEGATIVE); KETONE 2+ (NEGATIVE); NITRITE NEGATIVE (NEGATIVE); UROBILINOGEN 0.2 E.U./dl (0.2-1.0)
[2019-12-06 22:16] LABS: LEUKO ESTERASE TRACE (NEGATIVE)
[2019-12-06 22:26] LABS: CALCIUM OXALATE CRYSTALS 2+
[2019-12-06 22:27] LABS: BACTERIA 1+; MUCOUS 2+
[2019-12-06] MEDS ORDERED: CEFUROXIME AXE500 MG PO (22:59)
[2019-12-08 17:10] LABS: GONOCOCCUS BY NAA Negative (Negative)
== END 2019-12-06 23:32 | disposition home or self-care (01) ==
LOC: ED 20:38
PROVIDERS: Nurse Practitioner Family
DX: S09.90XA Unspecified injury of head, initial encounter (principal); N39.0 Urinary tract infection, site not specified; F17.200 Nicotine dependence, unspecified, uncomplicated; Z20.2 Contact with and (suspected) exposure to infections with a predominantly sexual mode of transmission; Z88.1 Allergy status to other antibiotic agents; Z88.6 Allergy status to analgesic agent; W22.03XA Walked into furniture, initial encounter; Y93.89 Activity, other specified; Y92.89 Other specified places as the place of occurrence of the external cause; Y99.8 Other external cause status

== ENCOUNTER 2020-03-09 03:43 | Emergency (ER) | payer OTHER ==
[~2020-03-09] VITALS: Ht 162.5 cm; Wt 82.1 kg
[~2020-03-09 03:43] MED LIST changes: +CEFUROXIME AXE500 MG PO
== END 2020-03-09 04:55 | disposition left against medical advice (07) ==
LOC: ED 03:43
DX: S00.83XA Contusion of other part of head, initial encounter (principal); J45.909 Unspecified asthma, uncomplicated; Z88.5 Allergy status to narcotic agent; Z88.8 Allergy status to other drugs, medicaments and biological substances; Z79.899 Other long term (current) drug therapy; V49.9XXA Car occupant (driver) (passenger) injured in unspecified traffic accident, initial encounter; Y93.89 Activity, other specified; Y92.89 Other specified places as the place of occurrence of the external cause; Y99.8 Other external cause status

== ENCOUNTER 2020-09-24 18:41 | Emergency (ER) | payer OTHER ==
[~2020-09-24] VITALS: Ht 162.5 cm
[2020-09-24] MEDS ORDERED: Motrin,Rufen800 MG PO (20:57)
== END 2020-09-24 21:38 | disposition home or self-care (01) ==
LOC: ED 18:41
DX: S93.401A Sprain of unspecified ligament of right ankle, initial encounter (principal); J45.909 Unspecified asthma, uncomplicated; Z87.442 Personal history of urinary calculi; Z88.1 Allergy status to other antibiotic agents; Z88.5 Allergy status to narcotic agent; Z98.890 Other specified postprocedural states; Z98.51 Tubal ligation status; W18.42XA Slipping, tripping and stumbling without falling due to stepping into hole or opening, initial encounter; Y93.89 Activity, other specified; Y92.64 Mine or pit as the place of occurrence of the external cause; Y99.8 Other external cause status

== ENCOUNTER 2020-10-28 03:40 | Emergency (ER) | payer OTHER ==
[~2020-10-28] VITALS: Wt 98.9 kg
== END 2020-10-28 04:21 | disposition home or self-care (01) ==
LOC: ED 03:40
DX: H92.03 Otalgia, bilateral (principal); J06.9 Acute upper respiratory infection, unspecified; J45.909 Unspecified asthma, uncomplicated; F17.200 Nicotine dependence, unspecified, uncomplicated; Z88.1 Allergy status to other antibiotic agents; Z88.5 Allergy status to narcotic agent; Z79.899 Other long term (current) drug therapy; Z98.890 Other specified postprocedural states; Z98.51 Tubal ligation status; Z87.442 Personal history of urinary calculi

== ENCOUNTER 2020-12-28 18:53 | Emergency (ER) | payer OTHER ==
[~2020-12-28] VITALS: Ht 162.5 cm; Wt 98.9 kg
[2020-12-28 19:16] LABS: BILIRUBIN Negative (Negative); BLOOD Trace-Lysed (Negative); CLARITY Cloudy (Clear); COLOR Yellow (Yellow); GLUCOSE Negative (Negative); KETONE 1+ (Negative); LEUKO ESTERASE 2+ (Negative); NITRITE Positive (Negative); SPECIFIC GRAVITY 1.025 (1.001-1.030)
[2020-12-28 19:21] LABS: RBC 0-2 rbc/hpf (0-2); WBC TNTC wbc/hpf (0-5)
[2020-12-28 19:22] LABS: BACTERIA 2+; MUCOUS TRACE
[2020-12-28] MEDS ORDERED: CEPHALEXIN500 M1 PO (19:25)
[2020-12-28] MEDS ORDERED: PYRIDIUM100 MG PO (19:25)
[2020-12-28] MEDS ORDERED: Ondansetron4 MG PO (19:29)
== END 2020-12-28 19:30 | disposition home or self-care (01) ==
LOC: ED 18:53
PROVIDERS: Nurse Practitioner Family
DX: N39.0 Urinary tract infection, site not specified (principal); J45.909 Unspecified asthma, uncomplicated; N89.8 Other specified noninflammatory disorders of vagina; F17.200 Nicotine dependence, unspecified, uncomplicated; Z88.1 Allergy status to other antibiotic agents; Z88.5 Allergy status to narcotic agent; Z79.899 Other long term (current) drug therapy; Z98.890 Other specified postprocedural states; Z98.51 Tubal ligation status; Z87.442 Personal history of urinary calculi

== ENCOUNTER → 2021-05-14 | Outpatient (CLI) | payer OTHER ==
[~2021-05-14] MED LIST changes: +CEPHALEXIN500 M1 PO; +Ondansetron4 MG PO
[2021-05-14 15:23] LABS: BASO # 0.1 10*3/uL (0.0-0.1); BASO % 0.6 % (0.0-1.0); EOS # 0.4 10*3/uL (0.0-0.4); EOS % 4.2 % (1.0-4.0); LYMPH # 2.6 10*3/uL (1.3-4.4); LYMPH % 26.6 % (27.0-41.0); MEAN CELL VOLUME 86.2 fl (81.0-99.0); MEAN CORPUSCULAR HGB 27.9 pg (27.0-31.0); MEAN CORPUSCULAR HGB CONC 32.3 g/dl (33.0-37.0); MEAN PLATELET VOLUME 9.5 fl (9.6-12.3); MONO # 0.6 10*3/uL (0.1-1.0); MONO % 6.6 % (3.0-9.0); NEUT # 5.9 10*3/uL (2.3-7.9); NEUT % 61.6 % (47.0-73.0); PLATELET COUNT AUTOMATED 287 10*3/uL (130-400); RED BLOOD COUNT 4.99 10*6/uL (4.10-5.10); RED CELL DISTRI WIDTH 13.3 % (0-14.5); WHITE BLOOD COUNT 9.6 10*3/uL (4.8-10.8)
[2021-05-14 16:09] LABS: CHLORIDE 108 mmol/L (98-107); POTASSIUM 4.1 mmol/L (3.5-5.1); SODIUM 141 mmol/L (136-145)
[2021-05-14 16:30] LABS: ALBUMIN 3.4 gm/dl (3.1-4.5); ALKALINE PHOSPHATASE 79 U/L (45-117); BUN 10 mg/dl (7-24); CHOLESTEROL 163 mg/dL (<200); CREATININE 0.68 mg/dL (0.55-1.02); LDL CHOLESTEROL 115 mg/dL (9-159); SGOT/AST 11 IU/L (3-35); SGPT/ALT 14 U/L (12-78); THYROID STIM HORMONE (HS) 0.709 uIU/ml (0.358-4.75); TOTAL PROTEIN 6.5 gm/dL (6.4-8.2); TRIGLYCERIDES 53 mg/dl (<150)
== END | disposition home or self-care (01) ==
LOC: LAB 14:47
PROVIDERS: ATTEND Pediatrics
DX: I10 Essential (primary) hypertension (principal); E55.9 Vitamin D deficiency, unspecified; R63.5 Abnormal weight gain; Z79.899 Other long term (current) drug therapy; Z00.01 Encounter for general adult medical examination with abnormal findings

== ENCOUNTER 2021-06-20 17:46 | Emergency (ER) | payer OTHER ==
[~2021-06-20] VITALS: Ht 162.5 cm; Wt 98.9 kg
[2021-06-20 19:02] LABS: BILIRUBIN Negative (Negative); BLOOD Negative (Negative); CLARITY Clear (Clear); COLOR Yellow (Yellow); GLUCOSE Negative (Negative); KETONE Trace (Negative); LEUKO ESTERASE 1+ (Negative); NITRITE Negative (Negative)
[2021-06-20 19:03] LABS: PH 8.5 (4.5-8.0)
[2021-06-20 19:13] LABS: BACTERIA TRACE; RBC 0-2 rbc/hpf (0-2); WBC 16-20 wbc/hpf (0-5)
== END 2021-06-20 20:00 | disposition home or self-care (01) ==
LOC: ED 17:46
PROVIDERS: Physician Assistant
DX: Z20.2 Contact with and (suspected) exposure to infections with a predominantly sexual mode of transmission (principal); R30.9 Painful micturition, unspecified; F17.200 Nicotine dependence, unspecified, uncomplicated; Z88.1 Allergy status to other antibiotic agents; Z88.5 Allergy status to narcotic agent; Z79.2 Long term (current) use of antibiotics; Z79.899 Other long term (current) drug therapy; Z98.51 Tubal ligation status; Z98.890 Other specified postprocedural states

== ENCOUNTER 2021-12-18 22:58 | Emergency (ER) | payer OTHER ==
[~2021-12-18] VITALS: Ht 162.5 cm; Wt 90.7 kg
== END 2021-12-19 02:09 | disposition home or self-care (01) ==
LOC: ED 22:58
DX: S80.02XA Contusion of left knee, initial encounter (principal); S59.901A Unspecified injury of right elbow, initial encounter; Z88.1 Allergy status to other antibiotic agents; Z88.6 Allergy status to analgesic agent; Z98.51 Tubal ligation status; Z98.890 Other specified postprocedural states; Z87.891 Personal history of nicotine dependence; W22.8XXA Striking against or struck by other objects, initial encounter; Y93.89 Activity, other specified; Y92.89 Other specified places as the place of occurrence of the external cause; Y99.8 Other external cause status

== ENCOUNTER 2022-08-29 01:35 | Emergency (ER) | payer OTHER ==
[~2022-08-29] VITALS: Ht 162.5 cm; Wt 98.4 kg
[2022-08-29] MEDS ORDERED: COMBIVENT RESPIM4 GM INH (01:54)
[2022-08-29 02:34] LABS: BASO # 0.1 10*3/uL (0.0-0.1); BASO % 0.3 % (0.0-1.0); EOS # 0.2 10*3/uL (0.0-0.4); EOS % 1.3 % (1.0-4.0); HEMATOCRIT 46.4 % (37.0-47.0); LYMPH # 2.8 10*3/uL (1.3-4.4); LYMPH % 19.3 % (27.0-41.0); MEAN CELL VOLUME 87.4 fl (81.0-99.0); MEAN CORPUSCULAR HGB 29.4 pg (27.0-31.0); MEAN CORPUSCULAR HGB CONC 33.6 g/dl (33.0-37.0); MEAN PLATELET VOLUME 8.7 fl (9.6-12.3); MONO # 0.8 10*3/uL (0.1-1.0); MONO % 5.3 % (3.0-9.0); NEUT # 10.6 10*3/uL (2.3-7.9); NEUT % 73.6 % (47.0-73.0); PLATELET COUNT AUTOMATED 343 10*3/uL (130-400); RED BLOOD COUNT 5.31 10*6/uL (4.10-5.10); RED CELL DISTRI WIDTH 13.4 % (0-14.5); WHITE BLOOD COUNT 14.5 10*3/uL (4.8-10.8)
[2022-08-29 02:58] LABS: ALKALINE PHOSPHATASE 73 U/L (45-117); BUN 13 mg/dl (7-24); CHLORIDE 105 mmol/L (98-107); CREATININE 0.88 mg/dL (0.55-1.02); POTASSIUM 3.6 mmol/L (3.5-5.1); SGOT/AST 11 IU/L (3-35); SGPT/ALT 17 U/L (12-78); SODIUM 140 mmol/L (136-145)
[2022-08-29] MEDS ORDERED: VIBRAMYCIN100 MG PO (05:09)
== END 2022-08-29 05:17 | disposition home or self-care (01) ==
LOC: ED 01:35
PROVIDERS: Emergency Medicine
DX: J32.9 Chronic sinusitis, unspecified (principal); Z20.822 Contact with and (suspected) exposure to COVID-19; F17.210 Nicotine dependence, cigarettes, uncomplicated; F41.9 Anxiety disorder, unspecified; Z88.1 Allergy status to other antibiotic agents; Z88.5 Allergy status to narcotic agent; Z79.899 Other long term (current) drug therapy; Z87.442 Personal history of urinary calculi; Z98.890 Other specified postprocedural states; Z98.51 Tubal ligation status

== ENCOUNTER 2022-12-06 04:46 | Emergency (ER) | payer OTHER ==
[~2022-12-06 04:46] MED LIST changes: +COMBIVENT RESPIM4 GM INH
[2022-12-06 05:39] LABS: ALKALINE PHOSPHATASE 71 U/L (46-116); BUN 8 mg/dl (9-23); CHLORIDE 103 mmol/L (98-107); POTASSIUM 3.8 mmol/L (3.4-5.1); SGPT/ALT 12 U/L (10-49); TOTAL PROTEIN 7.4 gm/dL (6.0-8.0)
[2022-12-06 06:00] LABS: BASO # 0.1 10*3/uL (0.0-0.1); BASO % 0.3 % (0.0-1.0); EOS # 0.2 10*3/uL (0.0-0.4); EOS % 1.2 % (1.0-4.0); HEMATOCRIT 46.1 % (37.0-47.0); LYMPH # 2.1 10*3/uL (1.3-4.4); LYMPH % 14.5 % (27.0-41.0); MEAN CORPUSCULAR HGB 29.4 pg (27.0-31.0); MEAN CORPUSCULAR HGB CONC 33.4 g/dl (33.0-37.0); MEAN PLATELET VOLUME 9.2 fl (9.6-12.3); MONO # 0.9 10*3/uL (0.1-1.0); MONO % 5.9 % (3.0-9.0); NEUT # 11.2 10*3/uL (2.3-7.9); NEUT % 77.1 % (47.0-73.0); PLATELET COUNT AUTOMATED 376 10*3/uL (130-400); RED BLOOD COUNT 5.24 10*6/uL (4.10-5.10); RED CELL DISTRI WIDTH 13.4 % (0-14.5); WHITE BLOOD COUNT 14.6 10*3/uL (4.8-10.8)
[2022-12-06] MEDS ORDERED: ONDANSETRON4 MG SL (06:15)
== END 2022-12-06 06:50 | disposition home or self-care (01) ==
LOC: ED 04:46
PROVIDERS: Internal Medicine
DX: B34.9 Viral infection, unspecified (principal); R79.82 Elevated C-reactive protein (CRP); D72.829 Elevated white blood cell count, unspecified; Z88.1 Allergy status to other antibiotic agents; Z88.8 Allergy status to other drugs, medicaments and biological substances; Z98.890 Other specified postprocedural states; Z98.51 Tubal ligation status; F17.200 Nicotine dependence, unspecified, uncomplicated; Z20.822 Contact with and (suspected) exposure to COVID-19

== ENCOUNTER 2022-12-20 22:11 | Inpatient (IN) | payer OTHER ==
[~2022-12-20] VITALS: Ht 167.6 cm; Wt 93.0 kg
[~2022-12-20 22:11] MED LIST changes: +ONDANSETRON4 MG SL
[2022-12-20 22:15] VITALS: BP 119/79
[2022-12-20 22:33] LABS: BASO # 0.1 10*3/uL (0.0-0.1); BASO % 0.5 % (0.0-1.0); EOS # 0.3 10*3/uL (0.0-0.4); HEMATOCRIT 43.6 % (37.0-47.0); LYMPH # 2.9 10*3/uL (1.3-4.4); LYMPH % 18.4 % (27.0-41.0); MEAN CELL VOLUME 87.9 fl (81.0-99.0); MEAN CORPUSCULAR HGB 29.4 pg (27.0-31.0); MEAN CORPUSCULAR HGB CONC 33.5 g/dl (33.0-37.0); MEAN PLATELET VOLUME 9.2 fl (9.6-12.3); MONO # 0.7 10*3/uL (0.1-1.0); MONO % 4.6 % (3.0-9.0); NEUT # 11.6 10*3/uL (2.3-7.9); NEUT % 74.2 % (47.0-73.0); PLATELET COUNT AUTOMATED 310 10*3/uL (130-400); RED BLOOD COUNT 4.96 10*6/uL (4.10-5.10); RED CELL DISTRI WIDTH 12.9 % (0-14.5); WHITE BLOOD COUNT 15.6 10*3/uL (4.8-10.8)
[2022-12-20 22:56] LABS: ALKALINE PHOSPHATASE 63 U/L (46-116); BUN 11 mg/dl (9-23); CHLORIDE 105 mmol/L (98-107); SGPT/ALT 7 U/L (10-49); TOTAL PROTEIN 7.2 gm/dL (6.0-8.0)
[2022-12-20 22:57] LABS: ETHYL ALCOHOL < 3.0 mg/dl (<3)
[2022-12-20 23:11] LABS: BILIRUBIN Negative (Negative); BLOOD 3+ (Negative); CLARITY Turbid (Clear); COLOR Dark Yellow (Yellow); GLUCOSE Negative (Negative); KETONE Trace (Negative); LEUKO ESTERASE Trace (Negative); NITRITE Negative (Negative); PH 5.5 (4.5-8.0); SPECIFIC GRAVITY 1.025 (1.001-1.030)
[2022-12-20 23:18] LABS: BACTERIA 1+; MUCOUS 1+; RBC 16-20 rbc/hpf (0-2)
[2022-12-20 23:22] LABS: URINE AMPHETAMINES Negative (1000ng/ml); URINE BARBITURATES Negative (200ng/ml); URINE BENZODIAZEPINES Positive (200ng/ml); URINE CANNABINOIDS (THC) Positive (50ng/ml); URINE COCAINE Positive (300ng/ml); URINE METHADONE Negative (300ng/ml); URINE OPIATES Positive (300ng/ml); URINE PHENCYCLIDINE Negative (25ng/ml)
[2022-12-20 23:30] VITALS: BP 114/71
[2022-12-21 01:10] VITALS: BP 115/58
[2022-12-21 04:00] VITALS: BP 108/56
[2022-12-21 06:35] LABS: BASO # 0.1 10*3/uL (0.0-0.1); BASO % 0.6 % (0.0-1.0); EOS # 0.1 10*3/uL (0.0-0.4); HEMATOCRIT 43.7 % (37.0-47.0); LYMPH # 2.4 10*3/uL (1.3-4.4); LYMPH % 18.8 % (27.0-41.0); MEAN CELL VOLUME 87.1 fl (81.0-99.0); MEAN CORPUSCULAR HGB 28.5 pg (27.0-31.0); MEAN CORPUSCULAR HGB CONC 32.7 g/dl (33.0-37.0); MEAN PLATELET VOLUME 9.1 fl (9.6-12.3); MONO # 0.6 10*3/uL (0.1-1.0); MONO % 4.4 % (3.0-9.0); NEUT # 9.4 10*3/uL (2.3-7.9); NEUT % 74.9 % (47.0-73.0); PLATELET COUNT AUTOMATED 307 10*3/uL (130-400); RED BLOOD COUNT 5.02 10*6/uL (4.10-5.10); WHITE BLOOD COUNT 12.5 10*3/uL (4.8-10.8)
[2022-12-21 07:15] LABS: ALKALINE PHOSPHATASE 61 U/L (46-116); BUN 10 mg/dl (9-23); CHLORIDE 109 mmol/L (98-107); CHOLESTEROL 171 mg/dL (<200); FREE T4 1.28 ng/dl (0.89-1.76); LDL CHOLESTEROL 129 mg/dL (9-159); POTASSIUM 4.2 mmol/L (3.4-5.1); SGPT/ALT 8 U/L (10-49); THYROID STIM HORMONE (HS) 0.159 uIU/ml (0.550-4.780); TOTAL PROTEIN 6.9 gm/dL (6.0-8.0); TRIGLYCERIDES 70 mg/dl (<150)
[2022-12-21 08:30] VITALS: BP 111/54
== END 2022-12-21 09:50 | disposition left against medical advice (07) | DRG 770 ==
LOC: ED 22:11 → ICCU 23:30 → EDHOLD 23:30 → ICCU 12-21 00:14
PROVIDERS: Emergency Medicine; Student in an Organized Health Care Education/Training Program; ADMIT Internal Medicine; ATTEND Internal Medicine
DX: F11.23 Opioid dependence with withdrawal (principal); R65.10 Systemic inflammatory response syndrome (SIRS) of non-infectious origin without acute organ dysfunction; F41.9 Anxiety disorder, unspecified; R73.9 Hyperglycemia, unspecified; F13.10 Sedative, hypnotic or anxiolytic abuse, uncomplicated; F14.10 Cocaine abuse, uncomplicated; F12.10 Cannabis abuse, uncomplicated; F17.210 Nicotine dependence, cigarettes, uncomplicated; Z98.51 Tubal ligation status; Z98.891 History of uterine scar from previous surgery; Z88.1 Allergy status to other antibiotic agents; Z88.5 Allergy status to narcotic agent; Z79.51 Long term (current) use of inhaled steroids; Z53.29 Procedure and treatment not carried out because of patient's decision for other reasons; F19.10 Other psychoactive substance abuse, uncomplicated

== ENCOUNTER 2023-03-25 22:37 | Emergency (ER) | payer OTHER ==
[~2023-03-25] VITALS: Ht 162.5 cm; Wt 96.6 kg
[2023-03-25] MEDS ORDERED: TRAZODONE50 MG PO (22:48)
[2023-03-25] MEDS ORDERED: CLONIDINE HCL0.1 MG PO (22:49)
[2023-03-26] MEDS ORDERED: PEPCID20 MG PO (02:47)
[2023-03-26] MEDS ORDERED: PREDNISONE10 M1 PO (02:47)
[2023-03-26] MEDS ORDERED: BENADRYL ALLERG25 M5 PO (02:47)
== END 2023-03-26 02:49 | disposition home or self-care (01) ==
LOC: ED 22:37
DX: T78.40XA Allergy, unspecified, initial encounter (principal); T78.3XXA Angioneurotic edema, initial encounter; J45.909 Unspecified asthma, uncomplicated; Z87.442 Personal history of urinary calculi; Z88.1 Allergy status to other antibiotic agents; Z88.5 Allergy status to narcotic agent; F41.9 Anxiety disorder, unspecified; R73.9 Hyperglycemia, unspecified; F19.10 Other psychoactive substance abuse, uncomplicated; D64.9 Anemia, unspecified; Z98.890 Other specified postprocedural states; Z98.51 Tubal ligation status; F17.200 Nicotine dependence, unspecified, uncomplicated; X58.XXXA Exposure to other specified factors, initial encounter

== ENCOUNTER 2023-03-30 08:29 | Emergency (ER) | payer OTHER ==
[~2023-03-30] VITALS: Wt 98.9 kg
[~2023-03-30 08:29] MED LIST changes: +CLONIDINE HCL0.1 MG PO; +PREDNISONE10 M1 PO; +TRAZODONE50 MG PO
[2023-03-30 09:12] LABS: BASO % 0.2 % (0.0-1.0); EOS # 0.1 10*3/uL (0.0-0.4); EOS % 0.4 % (1.0-4.0); LYMPH # 2.6 10*3/uL (1.3-4.4); LYMPH % 15.8 % (27.0-41.0); MEAN CELL VOLUME 89.7 fl (81.0-99.0); MEAN CORPUSCULAR HGB 29.4 pg (27.0-31.0); MEAN CORPUSCULAR HGB CONC 32.8 g/dl (33.0-37.0); MEAN PLATELET VOLUME 9.1 fl (9.6-12.3); MONO # 0.6 10*3/uL (0.1-1.0); MONO % 3.9 % (3.0-9.0); NEUT # 12.9 10*3/uL (2.3-7.9); NEUT % 79.1 % (47.0-73.0); PLATELET COUNT AUTOMATED 317 10*3/uL (130-400); RED BLOOD COUNT 5.13 10*6/uL (4.10-5.10); RED CELL DISTRI WIDTH 14.1 % (0-14.5); WHITE BLOOD COUNT 16.3 10*3/uL (4.8-10.8)
[2023-03-30 09:43] LABS: ALKALINE PHOSPHATASE 57 U/L (46-116); BUN 6 mg/dl (9-23); CHLORIDE 105 mmol/L (98-107); LIPASE 24 U/L (12-53); POTASSIUM 3.4 mmol/L (3.4-5.1); SGPT/ALT 7 U/L (10-49)
[2023-03-30 09:44] LABS: BETA-HCG, QUANT < 3.0 mIU/mL (3-10)
[2023-03-30] MEDS ORDERED: HYDROXYZINE HCL25 MG PO (21:54)
== END 2023-03-30 12:12 | disposition home or self-care (01) ==
LOC: ED 08:29
PROVIDERS: Emergency Medicine
DX: T78.40XA Allergy, unspecified, initial encounter (principal); F17.200 Nicotine dependence, unspecified, uncomplicated; Z88.1 Allergy status to other antibiotic agents; Z88.5 Allergy status to narcotic agent; Z79.899 Other long term (current) drug therapy; Z98.890 Other specified postprocedural states; Z98.51 Tubal ligation status; X58.XXXA Exposure to other specified factors, initial encounter

== ENCOUNTER 2023-03-30 19:39 | Emergency (ER) | payer OTHER ==
[~2023-03-30] VITALS: Ht 160 cm; Wt 98.9 kg
[2023-03-30] MEDS ORDERED: HYDROXYZINE HCL25 MG PO (21:54)
== END 2023-03-30 22:26 | disposition home or self-care (01) ==
LOC: ED 19:39
DX: L50.9 Urticaria, unspecified (principal); J45.909 Unspecified asthma, uncomplicated; Z87.442 Personal history of urinary calculi; Z88.1 Allergy status to other antibiotic agents; Z88.5 Allergy status to narcotic agent; Z98.51 Tubal ligation status; Z98.890 Other specified postprocedural states; F17.200 Nicotine dependence, unspecified, uncomplicated

== ENCOUNTER 2023-09-14 14:30 | Emergency (ER) | payer OTHER ==
[~2023-09-14] VITALS: Wt 94.3 kg
[~2023-09-14 14:30] MED LIST changes: +HYDROXYZINE HCL25 MG PO
[2023-09-14 18:45] LABS: BASO # 0.1 10*3/uL (0.0-0.1); BASO % 0.4 % (0.0-1.0); EOS # 0.2 10*3/uL (0.0-0.4); EOS % 1.6 % (1.0-4.0); HEMATOCRIT 42.4 % (37.0-47.0); LYMPH # 2.4 10*3/uL (1.3-4.4); LYMPH % 17.2 % (27.0-41.0); MEAN CELL VOLUME 88.5 fl (81.0-99.0); MEAN CORPUSCULAR HGB 30.1 pg (27.0-31.0); MEAN PLATELET VOLUME 8.8 fl (9.6-12.3); MONO # 0.6 10*3/uL (0.1-1.0); MONO % 4.5 % (3.0-9.0); NEUT # 10.7 10*3/uL (2.3-7.9); PLATELET COUNT AUTOMATED 317 10*3/uL (130-400); RED BLOOD COUNT 4.79 10*6/uL (4.10-5.10); RED CELL DISTRI WIDTH 13.7 % (0-14.5); WHITE BLOOD COUNT 14.1 10*3/uL (4.8-10.8)
[2023-09-14 19:06] LABS: ALKALINE PHOSPHATASE 66 U/L (46-116); BUN 10 mg/dl (9-23); CHLORIDE 106 mmol/L (98-107); POTASSIUM 4.2 mmol/L (3.4-5.1); SGPT/ALT 10 U/L (5-49); TOTAL PROTEIN 6.6 gm/dL (6.0-8.0)
[2023-09-14 19:15] LABS: BILIRUBIN Negative (Negative); BLOOD Negative (Negative); CLARITY Clear (Clear); COLOR Yellow (Yellow); GLUCOSE Negative (Negative); KETONE Negative (Negative); LEUKO ESTERASE Negative (Negative); NITRITE Negative (Negative); PH 6.5 (4.5-8.0); UROBILINOGEN 0.2 E.U./dl (0.0-1.0)
[2023-09-14 19:21] LABS: BETA-HCG, QUANT < 3.0 mIU/mL (3-10)
[2023-09-14 19:33] LABS: MUCOUS 1+; RBC 0-2 rbc/hpf (0-2); WBC 0-2 wbc/hpf (0-5)
== END 2023-09-14 22:23 | disposition home or self-care (01) ==
LOC: ED 14:30
PROVIDERS: Physician Assistant Medical
DX: F41.9 Anxiety disorder, unspecified (principal); J06.9 Acute upper respiratory infection, unspecified; Z20.2 Contact with and (suspected) exposure to infections with a predominantly sexual mode of transmission; R21 Rash and other nonspecific skin eruption; R10.2 Pelvic and perineal pain; J45.909 Unspecified asthma, uncomplicated; Z87.442 Personal history of urinary calculi; Z88.1 Allergy status to other antibiotic agents; Z88.5 Allergy status to narcotic agent; Z98.890 Other specified postprocedural states; Z98.51 Tubal ligation status; F17.200 Nicotine dependence, unspecified, uncomplicated; Z20.822 Contact with and (suspected) exposure to COVID-19

== ENCOUNTER 2023-10-20 19:43 | Emergency (ER) | payer OTHER ==
[~2023-10-20] VITALS: Ht 162.5 cm; Wt 98.9 kg
[2023-10-20] MEDS ORDERED: CLONIDINE0.3 MG PO (20:07)
[2023-10-20] MEDS ORDERED: TRAZODONE50 MG PO (20:09)
[2023-10-20] MEDS ORDERED: HYDRALAZINE HYD50 MG PO (20:09)
== END 2023-10-20 23:36 | disposition left against medical advice (07) ==
LOC: ED 19:43
DX: N63.10 Unspecified lump in the right breast, unspecified quadrant (principal); F41.9 Anxiety disorder, unspecified; F17.200 Nicotine dependence, unspecified, uncomplicated; Z88.1 Allergy status to other antibiotic agents; Z88.5 Allergy status to narcotic agent; Z79.899 Other long term (current) drug therapy; Z98.890 Other specified postprocedural states; Z98.51 Tubal ligation status

== ENCOUNTER → 2023-11-10 | Outpatient (CLI) | payer OTHER ==
[~2023-11-10] MED LIST changes: +CLONIDINE0.3 MG PO; +HYDRALAZINE HYD50 MG PO
== END | disposition home or self-care (01) ==
LOC: MAMMO 12:40
PROVIDERS: ATTEND Surgery
DX: N61.1 Abscess of the breast and nipple (principal); N63.41 Unspecified lump in right breast, subareolar; N64.59 Other signs and symptoms in breast

== ENCOUNTER → 2023-11-23 | Outpatient (CLI) | payer OTHER ==
[~2023-11-23] MED LIST changes: +Lidocaine Hydrochloride 5 ML AMP ONE; +SODIUM BICARBONATE 4.2% 5 ML VIAL ONE
== END | disposition home or self-care (01) ==
LOC: SDC 04:27 → EDSTATUS 11:00
PROVIDERS: ATTEND Surgery
DX: N61.1 Abscess of the breast and nipple (principal)

== ENCOUNTER 2023-12-22 16:59 | Emergency (ER) | payer OTHER ==
[~2023-12-22] VITALS: Ht 162.5 cm; Wt 93.9 kg
[~2023-12-22 16:59] MED LIST changes: -Lidocaine Hydrochloride 5 ML AMP ONE; -SODIUM BICARBONATE 4.2% 5 ML VIAL ONE
[2023-12-22 19:49] LABS: BASO # 0.1 10*3/uL (0.0-0.1); BASO % 0.7 % (0.0-1.0); EOS # 0.2 10*3/uL (0.0-0.4); EOS % 1.7 % (1.0-4.0); HEMATOCRIT 41.7 % (37.0-47.0); LYMPH # 3.2 10*3/uL (1.3-4.4); LYMPH % 25.7 % (27.0-41.0); MEAN CORPUSCULAR HGB 28.7 pg (27.0-31.0); MEAN CORPUSCULAR HGB CONC 32.6 g/dl (33.0-37.0); MEAN PLATELET VOLUME 8.8 fl (9.6-12.3); MONO # 0.7 10*3/uL (0.1-1.0); MONO % 5.7 % (3.0-9.0); NEUT # 8.1 10*3/uL (2.3-7.9); NEUT % 65.8 % (47.0-73.0); PLATELET COUNT AUTOMATED 315 10*3/uL (130-400); RED BLOOD COUNT 4.74 10*6/uL (4.10-5.10); RED CELL DISTRI WIDTH 13.2 % (0-14.5); WHITE BLOOD COUNT 12.3 10*3/uL (4.8-10.8)
[2023-12-22 20:04] LABS: BUN 10 mg/dl (9-23); CHLORIDE 108 mmol/L (98-107); LIPASE 24 U/L (12-53); POTASSIUM 3.6 mmol/L (3.4-5.1)
[2023-12-22] MEDS ORDERED: VIBRAMYCIN100 MG PO (20:34)
== END 2023-12-22 20:42 | disposition home or self-care (01) ==
LOC: ED 16:59
PROVIDERS: Internal Medicine
DX: N61.1 Abscess of the breast and nipple (principal); F17.200 Nicotine dependence, unspecified, uncomplicated; Z88.1 Allergy status to other antibiotic agents; Z88.5 Allergy status to narcotic agent; Z79.899 Other long term (current) drug therapy; Z98.890 Other specified postprocedural states; Z98.51 Tubal ligation status

== ENCOUNTER 2024-01-10 21:38 | Emergency (ER) | payer SELFPAY ==
[~2024-01-10] VITALS: Ht 165.1 cm; Wt 82.6 kg
[2024-01-10 21:52] LABS: BASO # 0.1 10*3/uL (0.0-0.1); BASO % 0.6 % (0.0-1.0); EOS # 0.3 10*3/uL (0.0-0.4); EOS % 2.2 % (1.0-4.0); HEMATOCRIT 44.2 % (37.0-47.0); LYMPH % 16.3 % (27.0-41.0); MEAN CELL VOLUME 89.5 fl (81.0-99.0); MEAN CORPUSCULAR HGB 28.9 pg (27.0-31.0); MEAN CORPUSCULAR HGB CONC 32.4 g/dl (33.0-37.0); MEAN PLATELET VOLUME 8.7 fl (9.6-12.3); MONO # 0.6 10*3/uL (0.1-1.0); MONO % 4.7 % (3.0-9.0); NEUT # 9.1 10*3/uL (2.3-7.9); NEUT % 74.8 % (47.0-73.0); PLATELET COUNT AUTOMATED 371 10*3/uL (130-400); RED BLOOD COUNT 4.94 10*6/uL (4.10-5.10); RED CELL DISTRI WIDTH 13.5 % (0-14.5); WHITE BLOOD COUNT 12.1 10*3/uL (4.8-10.8)
[2024-01-10 22:16] LABS: ALKALINE PHOSPHATASE 88 U/L (46-116); BUN 9 mg/dl (9-23); CHLORIDE 107 mmol/L (98-107); POTASSIUM 3.8 mmol/L (3.4-5.1); SGPT/ALT 30 U/L (5-49); TOTAL PROTEIN 7.7 gm/dL (6.0-8.0)
[2024-01-10 22:17] LABS: ETHYL ALCOHOL < 3.0 mg/dl (<3)
== END 2024-01-10 23:16 ==
LOC: ED 21:38
PROVIDERS: Internal Medicine
DX: F43.21 Adjustment disorder with depressed mood (principal); D72.829 Elevated white blood cell count, unspecified; J45.909 Unspecified asthma, uncomplicated; Z87.442 Personal history of urinary calculi; Z88.1 Allergy status to other antibiotic agents; Z88.5 Allergy status to narcotic agent; Z98.890 Other specified postprocedural states; Z98.51 Tubal ligation status; F17.200 Nicotine dependence, unspecified, uncomplicated; Z79.899 Other long term (current) drug therapy

== ENCOUNTER → 2025-08-30 | Outpatient (CLI) | payer OTHER | END | disposition home or self-care (01) | LOC: RAD 14:58 | PROVIDERS: ATTEND Nurse Practitioner | DX: Z01.818 Encounter for other preprocedural examination (principal); J43.9 Emphysema, unspecified; J45.20 Mild intermittent asthma, uncomplicated ==